=== PATIENT | female | born 1930 | race Caucasian/White ===

== ENCOUNTER → 2020-03-31 | Outpatient (CLI) | payer MEDICARE, BC ==
[2013-12-19 15:35] VITALS: BP 174/78
--- NOTE | 2020-03-31 16:39 | RAD ---
EXAMINATION: LOWER EXT JOINT WO RT INDICATIONS: Primary osteoarthritis right knee. TECHNIQUE: Multiplanar multisequence MRI of the right knee was obtained without contrast. COMPARISON: None FINDINGS: MENISCI: Severe macerated tear of the medial meniscus versus prior partial meniscectomy with absence of the medial meniscus body and truncated posterior and anterior horns. There is increased signal the posterior root lateral meniscus with possible extension to the surface on a single image. Free edge fraying of the body lateral meniscus. LIGAMENTS: There is mucoid degeneration of the anterior cruciate ligament. Posterior cruciate ligament is intact. The medial collateral and lateral collateral ligament complex are intact. EXTENSOR MECHANISM: The quadriceps and patellar tendons are intact. Fat pads are normal. Retinacula are intact. BONES AND CARTILAGE: No acute fracture. There is diffuse cartilage loss throughout most of the medial femoral condyle and medial tibial plateau with mild subchondral edema and degenerative remodeling of the articular surfaces. Superficial partial-thickness cartilage loss of the lateral femoral condyle with scattered deep and full-thickness defects. Deep partial-thickness cartilage loss of the lateral tibial plateau with a full-thickness fissure. Full-thickness cartilage loss along most of the patella with tiny subchondral cysts. Scattered partial-thickness cartilage loss along the trochlea. There are tricompartmental osteophytes, greatest in the medial compartment. There is marrow edema and cystic changes at the tibial eminence. OTHER: Large joint effusion. Leaking Burgos cyst. Diffuse subcutaneous edema, greatest anteriorly. Mild muscular atrophy. IMPRESSION: 1. 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 2. Severe macerated tear medial meniscus with absence of the meniscus body and truncated posterior and anterior horns. 3. Possible small horizontal tear of the posterior root lateral meniscus. 4. Large joint effusion. Electronically signed by: Antonietta Baca MD (03/31/2020 4:35 PM) [id number]
== END ==
LOC: MRI 14:24
PROVIDERS: ATTEND Family Medicine
DX: M17.11 Unilateral primary osteoarthritis, right knee (principal); M25.461 Effusion, right knee
CPT/HCPCS: 73721